=== PATIENT | male | born 1970 | race Caucasian/White ===

== ENCOUNTER 2016-09-15 14:39 | Emergency (ER) | payer BC, OTHER ==
[2016-09-15 15:02] VITALS: BP 147/72
[2016-09-15] MEDS ORDERED: Ibuprofen TAB* 400 MG PO ONE (16:00)
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
[2016-09-15] MEDS ORDERED: Ibuprofen TAB* 400 MG ONE (16:41)
== END 2016-09-15 17:27 | disposition home or self-care (01) ==
LOC: ED 14:39
DX: S46.819A Strain of other muscles, fascia and tendons at shoulder and upper arm level, unspecified arm, initial encounter (principal); V53.6XXA Passenger in pick-up truck or van injured in collision with car, pick-up truck or van in traffic accident, initial encounter; Y92.9 Unspecified place or not applicable
CPT/HCPCS: 99281; A9270-GY

== ENCOUNTER 2017-10-31 14:59 | Emergency (ER) | payer BC, OTHER ==
--- NOTE | 2017-10-31 16:05 | RAD ---
INDICATION: Intermittent left elbow pain COMPARISON: None. TECHNIQUE: 4 views left elbow. REPORT: The visualized bones of the left elbow are well corticated and properly aligned. There is no radiographically apparent fracture or dislocation. There is no radiographic evidence of pathologic joint effusion. IMPRESSION: Normal radiograph of the left elbow. If the patient's symptoms persist further follow-up imaging is recommended.
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
[2017-10-31 17:00] VITALS: BP 135/59
== END 2017-10-31 16:59 | disposition home or self-care (01) ==
LOC: ED 14:59
DX: M77.12 Lateral epicondylitis, left elbow (principal); M25.522 Pain in left elbow
CPT/HCPCS: 99281

== ENCOUNTER 2018-09-01 08:11 | Emergency (ER) | payer BC ==
[2018-09-01] MEDS ORDERED: NS 0.9% 1000 ML* 1,000 ML IV ONE (08:28)
--- NOTE | 2018-09-01 08:28 | ED ---
Back Pain - HPI Summary HPI Summary: A 48 y/o M presents to ED with c/o sudden-onset, non-radiating, severe back pain onset this AM [employer]. Patient was driving to work today at onset. Associated sx: difficulty breathing, excess salivation, mildly diaphoretic. Denies vomiting , testicular pain. At its worst, the pain is rated 8/9 out of 10. It has since improved unpon arrival, and pt rates the pain as 2 out of 10. He has not had previous back pain similar to this. He has a secondary complaint of R knee pain that began 4-5 days ago. He was ambulating when it suddenly gave out. Alleviating factor: rest. He is scheduled to go to [place] tomorrow. Denies daily medications. - History of Current Complaint Chief Complaint: EDFlankPain Stated Complaint: RIGHT SIDE FLANK PAIN/RIGHT KNEE PAIN Time Seen by Provider: 09/01/18 08:22 Hx Obtained From: Patient, Family/Roll Builder - Onset/Duration: Sudden Onset, Lasting Hours, Still Present Onset/Duration: Started Hours Ago, Atraumatic, Still Present Timing: Constant, Lasting Hours Severity Initially: Severe Severity Currently: Mild Pain Intensity: 2 Pain Scale Used: 0-10 Numeric Aggravating Symptom(s): Movement Associated Signs And Symptoms: Positive: Other - pos: dyspnea, excess salivation , diaphoresis. neg: vomiting, testicular pain - Allergies/Home Medications Allergies/Adverse Reactions: Allergies Allergy/AdvReac Type Severity Reaction Status Date / Time No Known Allergies Allergy Verified 06/16/14 19:14 PMH/Surg Hx/FS Hx/Imm Hx Previously Healthy: No Endocrine/Hematology History: Denies: Hx Anticoagulant Therapy, Hx Diabetes Cardiovascular History: Denies: Hx Hypertension - Surgical History Surgery Procedure, Year, and Place: Gastric bypass ~ 15 years ago Infectious Disease History: No Infectious Disease History: Denies: Traveled Outside the [place] in Last 30 Days - Family History Known Family History: Positive: Respiratory Disease - mom (smoker) - COPD Family History: Otherwise, everyone alive & healthy - Social History Occupation: Employed Full-time Lives: With Family Alcohol Use: None Hx Substance Use: No Substance Use Type: Reports: None Hx Tobacco Use: No Smoking Status (MU): Never Smoked Tobacco Review of Systems Positive: Skin Diaphoresis - mild ENT: Other - pos: excess salivation Positive: Other - pos: dyspnea Negative: Vomiting Negative: pain - testicular Musculoskeletal: Other - pos: back pain; R knee pain All Other Systems Reviewed And Are Negative: Yes Physical Exam - Summary Physical Exam Summary: VITAL SIGNS: Reviewed. GENERAL: Patient is a well-developed, obese male who is lying comfortable in the stretcher. Patient is not in any acute respiratory distress. HEAD AND FACE: Normocephalic and atraumatic. EYES: PERRLA, EOMI x 2, No injected conjunctiva. EARS: Hearing grossly intact. Ear canals and tympanic membranes are WNL. MOUTH: Oropharynx within normal limits. NECK: Supple, trachea is midline, no adenopathy, no JVD. CHEST: Symmetric, no tenderness at palpation LUNGS: Clear to auscultation bilaterally. No wheezing or crackles. CVS: RRR, S1 and S2 present, no murmurs or gallops appreciated. ABDOMEN: Soft, slight R CVA tenderness. No signs of distention. Positive bowel sounds. No rebound, no guarding, and no masses palpated. No abdominal bruit or pulsations. EXTREMITIES: FROM in all major joints, no edema, no cyanosis or clubbing. NEURO: Alert and oriented x 3. No acute neurological deficits. Speech is normal. SKIN: Dry and warm Triage Information Reviewed: Yes Vital Signs On Initial Exam: Initial Vitals Temp Pulse Resp BP Pulse Ox 96.9 F 64 15 145/91 97 09/01/18 08:15 09/01/18 08:15 09/01/18 08:15 09/01/18 08:15 09/01/18 08:15 Vital Signs Reviewed: Yes Diagnostics - Vital Signs Vital Signs Temp Pulse Resp BP Pulse Ox 09/01/18 08:15 96.9 F 64 15 145/91 97 - Laboratory Result Diagrams: 09/01/18 08:40 09/01/18 08:40 Lab Statement: Any lab studies that have been ordered have been reviewed, and results considered in the medical decision making process. - Radiology R KNEE Radiology Interpretation Completed By: Radiologist Summary of Radiographic Findings: IMPRESSION: NO ACUTE OSSEOUS INJURY. IF SYMPTOMS PERSIST, RECOMMEND REPEAT IMAGING. ED provider has reviewed this report. - CT A/P CT CT Interpretation Completed By: Radiologist Summary of CT Findings: IMPRESSION: 1. 0.3 CM CALCULUS OF THE PROXIMAL RIGHT URETER WITHOUT SIGNIFICANT HYDRONEPHROSIS. 2. FATTY INFILTRATION OF THE LIVER. ED provider has reviewed this report. Re-Evaluation - Re-Evaluation 1 Re-Evaluation Time: 10:23 Change: Unchanged Comment: Discussing results with pt and plan for discharge to f/u with urology. Back Pain Course/Dx - Course Assessment/Plan: A 48 y/o M presents to ED with c/o sudden-onset, non-radiating , severe back pain onset this AM V[employer]. Patient was driving to work today at onset. Associated sx: difficulty breathing, excess salivation, mildly diaphoretic. Denies vomiting, testicular pain. At its worst, the pain is rated 8 /9 out of 10. It has since improved unpon arrival, and pt rates the pain as 2 out of 10. He has not had previous back pain similar to this. He has a secondary complaint of R knee pain that began 4-5 days ago. He was ambulating when it suddenly gave out. Alleviating factor: rest. He is scheduled to go to [place] tomorrow. Denies daily medications. Blood work without a significant abnormality except for slight anemia, glucose 183, protein is 6.2. Abdominopelvic CT impression: 0.3 cm calculus of the proximal right ureter without significant hydronephrosis. Fatty infiltration of the liver. X-ray of the right knee impression: No acute osseous injury. In the ED course the patient was given Percocet for pain. I discussed all the findings and test results with the patient. Patient was instructed to return to the emergency room immediately if any of the symptoms return or worsens. Plan of care was discussed with the patient and understands and agrees. All questions were answered at patient satisfaction. There were no further complaints or concerns. Lung exam before discharge: CTA B/L. Good air exchange. No wheezing or crackles heard. CVS: S1 and S2 present. No murmurs appreciated. Patient is alert and oriented x 3. Patient is hemodynamically stable. Patient will be discharged home with follow up PCP in the next 2-3 day - Diagnoses Provider Diagnoses: Renal colic, Kidney stones, Knee pain Discharge - Sign-Out/Discharge Documenting (check all that apply): Patient Departure - DC - Discharge Plan Condition: Stable Disposition: HOME Prescriptions: HYDROcodone/ACETAMIN 5-325 MG* [[place] 5-325 TAB*] 1 tab PO Q6H PRN #12 tab MDD 4 PRN Reason: Pain Patient Education Materials: Hydrocodone/Acetaminophen (By mouth), Kidney Stones (ED), Renal Colic (ED), Knee Pain (ED) Referrals: [facility] [Outside] [facility] [place] [facility]IAN REFERRAL [Outside] - 3 Days Fish Loza MD [Medical Doctor] - 3 Days Additional Instructions: Follow up with Dr. Loza, urology, in 3 days. RETURN TO THE ED FOR ANY WORSENING OR NEW SYMPTOMS. - Billing Disposition and Condition Condition: STABLE Disposition: Home - Attestation Statements Document Initiated by Scribe: Yes Documenting Scribe: Ileana Lora Provider For Whom Scribe is Documenting (Include Credential): Dr. Johnny Pelayo MD Scribe Attestation: Ileana Laurent, scribed for Dr. Johnny Pelayo MD on 09/01/18 at 1042. Scribe Documentation Reviewed: Yes Provider Attestation: The documentation as recorded by the Ileana liu accurately reflects the service I personally performed and the decisions made by me, Dr. Johnny Pelayo MD Status of Scribe Document: Viewed
[2018-09-01 08:49] LABS: ABS Basophils 0 10^3/ul (0-0.2); ABS Eosinophils 0.3 10^3/ul (0-0.6); ABS Lymphocytes 1.7 10^3/ul (1.0-4.8); ABS Monocytes 0.5 10^3/ul (0-0.8); ABS Neutrophils 3.7 10^3/ul (1.5-7.7); ABS Nucleated RBC 0 10^3/ul; Eosinophil % 5.6 %; Hematocrit 35 % (42-52); Hemoglobin 11.4 g/dl (14.0-18.0); Lymphocyte % 26.5 %; Mean Corpuscular HGB Conc 33 g/dl (31-36); Mean Corpuscular Hemoglobin 30 pg (27-31); Mean Corpuscular Volume 91 fL (80-94); Mean Platelet Volume 7.5 fL (7.4-10.4); Nucleated Red Blood Cells % 0.1; Platelet Count 310 10^3/ul (150-450); Red Blood Count 3.83 10^6/ul (4.00-5.40); Red Cell Distribution Width 16 % (10.5-15); White Blood Count 6.2 10^3/ul (3.5-10.8)
[2018-09-01 09:08] LABS: Albumin 3.8 g/dL (3.2-5.2); Albumin/Globulin Ratio 1.6 (1-3); BUN/Creatinine Ratio 9.7 (8-20); C Reactive Protein 1.8 mg/L (<8.01); Calcium 8.6 mg/dL (8.6-10.3); Globulin 2.4 g/dL (2-4); HDL Cholesterol 34.2 mg/dL; Potassium 3.9 mmol/L (3.5-5.0); Total Bilirubin 0.4 mg/dL (0.2-1.0); Total Protein 6.2 g/dL (6.4-8.9)
[2018-09-01 10:50] LABS: Urine Appearance Cloudy; Urine Bacteria Absent (Absent); Urine Bilirubin Negative (Negative); Urine Blood 3+ (Negative); Urine Color Yellow; Urine Glucose Negative (Negative); Urine Ketones Negative (Negative); Urine Nitrite Negative (Negative); Urine Protein 1+(30 mg/dL) (Negative); Urine Red Blood Cell 3+(>10/hpf) (Absent); Urine Specific Gravity 1.019 (1.010-1.030); Urine Urobilinogen Negative (Negative); Urine White Blood Cell Absent (Absent)
[2018-09-01 10:57] VITALS: BP 115/67
== END 2018-09-01 10:57 | disposition home or self-care (01) ==
LOC: ED 08:11
DX: N20.0 Calculus of kidney (principal); M25.561 Pain in right knee; K76.0 Fatty (change of) liver, not elsewhere classified
CPT/HCPCS: 36415; 74176; 80053; 80061; 81003; 81015; 83605; 83690; 85025; 86140; 87086; 99282